=== PATIENT | female | born 1990 | race American Indian/Alaskan Native ===

== ENCOUNTER 2022-06-08 02:25 | Emergency (ER) | payer MEDICAID ==
[2022-06-08] MEDS ORDERED: TETANUS,DIPH,PERTUSS(ACELL) VACCINE 0.5 ML SYRINGE IM ONE (05:58)
[2022-06-08] MEDS ORDERED: oxyCODONE /ACETAMINOPHEN 5-325MG TAB PO ONE (05:58)
--- NOTE | 2022-06-08 07:13 | XRay Report ---
RIGHT HAND, 3 VIEWS INDICATION / CLINICAL INFORMATION: fb right index finger. COMPARISON: None available. FINDINGS: Old healed fracture of the fifth metacarpal bone. No acute fracture or malalignment. A do not see rad iopaque foreign object within the fingers. Soft tissue swelling is noted throughout the index finger. IMPRESSION: 1. No radiopaque foreign object is identified within the index finger. 2. Soft tissue swelling is noted throughout the index finger. 3. No significant acute osseous abnormality. Signer Name: Jana Gonzalez MD Signed: 06/08/2022 7:09 AM Workstation Name: [id number]
[2022-06-08] MEDS ORDERED: HYDROcodone/ACETAMINOPHEN 5-325 MG TAB PO ONE (07:19)
--- NOTE | 2022-06-08 07:36 | Emergency Department Report ---
ED Upper Extremity Inj HPI - General Chief Complaint: Extremity Injury, Upper Stated Complaint: FALL INJURY Time Seen by Provider: 06/08/22 07:11 Source: patient Mode of arrival: Ambulatory Limitations: No Limitations - History of Present Illness Initial Comments: This is a 31-year-old female nontoxic, well nourished in appearance, no acute signs of distress presents to the ED with c/o of right hand pain 1 day. Stated incident have been last night around 6 PM. Patient stated that she had a mechanical fall to right hand which a splinter from wood branch caused an abrasion. Stated had her friend remove the splinter of finger. Patient denies any other injuries or trauma. Patient denies any numbness, tingling, fever, chills, nausea, vomiting, chest pain, shortness of breath, headache, stiff neck. Patient denies any joint swelling or joint redness. Patient denies decreased range of motion but stated has pain with ROM. Patient stated alleriges to NSAIDs. Denies being UTD with tetnaus. MD Complaint: Injury to:: right, hand -: days(s) Other Extremity Injury: Hand: Right Other Injuries: none Place: outdoors Severity scale (0 -10): 8 Improves With: immobilization Worsens With: movement of extremity Context: fall Associated Symptoms: denies other symptoms. denies: weakness, numbness, neck pain, suspects foreign body, nausea/vomiting, heard/felt popping sensat - Related Data Previous Rx's Medication Instructions Recorded Last Taken Type Acetaminophen [Acetaminophen 8 650 mg PO Q8H PRN #12 tab 06/08/22 Unknown Rx Hour] cephALEXin [Keflex] 500 mg PO Q8HR #21 cap 06/08/22 Unknown Rx Allergies Allergy/AdvReac Type Severity Reaction Status Date / Time naproxen Allergy Unknown Verified 06/08/22 02:50 ibuprofen AdvReac Unknown Verified 06/08/22 02:50 ED Review of Systems ROS: Stated complaint: FALL INJURY Other details as noted in HPI Comment: All other systems reviewed and negative Constitutional: denies: chills, fever Eyes: denies: eye pain, eye discharge, vision change ENT: denies: ear pain, throat pain Respiratory: denies: cough, shortness of breath, wheezing Cardiovascular: denies: chest pain, palpitations Endocrine: no symptoms reported Gastrointestinal: denies: abdominal pain, nausea, diarrhea Genitourinary: denies: urgency, dysuria, discharge Musculoskeletal: denies: back pain, joint swelling, arthralgia Skin: denies: rash, lesions Neurological: denies: headache, weakness, paresthesias Psychiatric: denies: anxiety, depression Hematological/Lymphatic: denies: easy bleeding, easy bruising ED Past Medical Hx - Past Medical History Previous Medical History?: Yes - Surgical History Past Surgical History?: Yes - Social History Smoking Status: Unknown if ever smoked - Medications Home Medications: Home Medications Medication Instructions Recorded Confirmed Last Taken Type Acetaminophen [Acetaminophen 8 650 mg PO Q8H PRN #12 tab 06/08/22 Unknown Rx Hour] cephALEXin [Keflex] 500 mg PO Q8HR #21 cap 06/08/22 Unknown Rx ED Physical Exam - General Limitations: No Limitations General appearance: alert, in no apparent distress - Head Head exam: Present: atraumatic, normocephalic - Eye Eye exam: Present: normal appearance - Neck Neck exam: Present: full ROM - Respiratory Respiratory exam: Absent: respiratory distress - Cardiovascular Cardiovascular Exam: Present: regular rate - Extremities Exam Extremities exam: Present: full ROM, tenderness, normal capillary refill. Absent: joint swelling - Expanded Upper Extremity Exam Right General: Present: normal inspection Shoulder Exam: Present: normal inspection, full ROM. Absent: tenderness, swelling Upper Arm exam: Present: normal inspection, full ROM. Absent: tenderness, swelling Elbow exam: Present: normal inspection, full ROM. Absent: tenderness, swelling Forearm Wrist exam: Present: normal inspection, full ROM. Absent: tenderness, swelling, abrasion, laceration, ecchymosis, deformity, dislocation, erythema, tenderness over anatomical snuff box, pain with axial thumb loading Hand Wrist exam: Present: full ROM, tenderness, abrasion, other (Exam does not show any foreign body). Absent: swelling, laceration, ecchymosis, deformity, crepidus, dislocation, erythema, amputation, nail avulsion, subungual hematoma Hand L/R Back: 1 - Abrasion here 2 - Abrasion here Vascular: Present: normal capillary refill (Neurovascular within normal limits). Absent: vascular compromise - Back Exam Back exam: Present: normal inspection, full ROM. Absent: tenderness, CVA tenderness (R), CVA tenderness (L), muscle spasm, paraspinal tenderness, vertebral tenderness, rash noted - Neurological Exam Neurological exam: Present: alert, oriented X3, normal gait - Psychiatric Psychiatric exam: Present: normal affect, normal mood - Skin Skin exam: Present: warm, dry, intact, normal color. Absent: rash ED Course Vital Signs 06/08/22 02:35 Temperature 98.3 F Pulse Rate 108 H Respiratory 18 Rate Blood Pressure 123/85 O2 Sat by Pulse 97 Oximetry - Reevaluation(s) Reevaluation #1: 06/08/22 07:36 Patient is speaking in full sentences with no signs of distress noted. ED Medical Decision Making - Radiology Data [facility] [address] [place] [address] XRay Report Signed Patient: JASON JOHNSON MR#: [id number] : 1990 Acct:[id number] Age/Sex: 31 / F ADM Date: 06/08/22 Loc: ED Attending Dr: Ordering Physician: REAGAN TILLMAN Date of Service: 06/08/22 Procedure(s): XR hand 3+V RT Accession Number(s): [id number] cc: REAGAN TILLMAN Fluoro Time In Minutes: RIGHT HAND, 3 VIEWS INDICATION / CLINICAL INFORMATION: fb right index finger. COMPARISON: None available. FINDINGS: Old healed fracture of the fifth metacarpal bone. No acute fracture or malalignment. A do not see radiopaque foreign object within the fingers. Soft tissue swelling is noted throughout the index finger. IMPRESSION: 1. No radiopaque foreign object is identified within the index finger. 2. Soft tissue swelling is noted throughout the index finger. 3. No significant acute osseous abnormality. Signer Name: Jana Gonzalez MD Signed: 06/08/2022 7:09 AM Workstation Name: [id number] Transcribed By: Dictated By: Jana Gonzalez MD Electronically Authenticated By: Jana Gonzalez MD Signed Date/Time: 06/08/22708 DD/ TD/TT: - Medical Decision Making This is a 31-year-old female that presents with right hand injury and abrasion. Patient is stable and was examined by me. Area has been cleaned with Betadine and a sterile dressing has been applied. Educated patient on proper wound care. X-ray has been obtained and dictated by the radiologist. Patient is notified of the x-ray report with noted by the patient. Patient does have normal range of motion with some tenderness and no joint swelling. No ecchymosis. no joint redness or swelling. Not warm to touch. No signs of cellulites present. Patient received tetanus and pain medication in the ER which stated family member will drive patient home after discharge due to possible drowsiness. Patient referred to see orthopedic. At time of discharge, the patient does not seem toxic or ill in appearance. No acute signs of distress noted. Patient agrees to discharge treatment plan of care. No further questions noted by the patient. Critical care attestation.: If time is entered above; I have spent that time in minutes in the direct care of this critically ill patient, excluding procedure time. ED Disposition Clinical Impression: Injury of right hand Qualifiers: Encounter type: initial encounter Qualified Code(s): S69.91XA - Unspecified injury of right wrist, hand and finger(s), initial encounter Hand abrasion Qualifiers: Encounter type: initial encounter Laterality: right Qualified Code(s): S60.511A - Abrasion of right hand, initial encounter Disposition: 01 HOME / SELF CARE / HOMELESS Is pt being admited?: No Does the pt Need Aspirin: No Condition: Stable Instructions: Wound Care, Adult Additional Instructions: Follow-up with a orthopedic doctor in 3-5 days or if symptoms worsen and continue return to emergency room as soon as possible. Prescriptions: Acetaminophen [Acetaminophen 8 Hour] 650 mg PO Q8H PRN #12 tab PRN Reason: Pain , Severe (7-10) cephALEXin [Keflex] 500 mg PO Q8HR #21 cap Referrals: PRIMARY CAREMD [Referring] - 3-5 Days JOSH YAN MD [Staff Physician] - 3-5 Days Time of Disposition: 07:40
[2022-06-08 08:45] VITALS: BP 145/100
== END 2022-06-08 08:16 | disposition home or self-care (01) ==
LOC: ED 02:25
DX: S60.511A Abrasion of right hand, initial encounter (principal); Z88.6 Allergy status to analgesic agent; Z91.09 Other allergy status, other than to drugs and biological substances; X58.XXXA Exposure to other specified factors, initial encounter; Y93.89 Activity, other specified; Y92.89 Other specified places as the place of occurrence of the external cause; Y99.8 Other external cause status
CPT/HCPCS: 90471; 90715; 99283